=== PATIENT | male | born 1960 | race Caucasian/White ===

== ENCOUNTER 2021-05-27 09:38 | Day surgery (SDC) | payer BC ==
[~2021-05-27 09:38] MED LIST: Brimonidine 0.2% Ophth Soln 5 ML Bottle EYELF SCH
[2021-05-27] MEDS: Polymyxin B/Trimethoprim 10 ML Bottle EYELF SCH ×4 (09:44→11:13)
[2021-05-27 09:47] VITALS: PULSE 72
[2021-05-27] MEDS: Brimonidine 0.2% Ophth Soln 5 ML Bottle EYELF SCH ×4 (09:51→11:13)
[2021-05-27] MEDS: Phenylephrine 2.5% Ophth Soln 2 ML Bot EYELF SCH ×6 (09:54→10:46)
[2021-05-27] MEDS: Tropicamide 1% Ophth Soln 15 ML Bottle EYELF SCH ×4 (09:58→10:31)
[2021-05-27] MEDS: Lidocaine 1% PF 2 ML SDV INJECT SCH ×2 (10:39→10:55)
[2021-05-27] MEDS: Tetracaine HCl/PF 0.5% 4 ML Bottle EYEBOTH SCH ×3 (10:39→10:54)
[2021-05-27] MEDS: Pilocarpine 4% Ophth Soln 15 ML Bot EYELF SCH ×2 (10:40→11:13)
[2021-05-27] MEDS: Cefuroxime 10 MG/ML SYRINGE EYELF SCH ×2 (10:40→11:12)
[2021-05-27 11:24] VITALS: BP 143/96
== END 2021-05-27 11:23 | disposition home or self-care (01) ==
LOC: JD.SDS 09:38
PROVIDERS: ATTEND Ophthalmology
DX: E11.36 Type 2 diabetes mellitus with diabetic cataract (principal); H25.813 Combined forms of age-related cataract, bilateral; I10 Essential (primary) hypertension; M19.90 Unspecified osteoarthritis, unspecified site; K21.9 Gastro-esophageal reflux disease without esophagitis; E78.00 Pure hypercholesterolemia, unspecified; F17.200 Nicotine dependence, unspecified, uncomplicated; Z90.49 Acquired absence of other specified parts of digestive tract; Z79.82 Long term (current) use of aspirin; Z79.899 Other long term (current) drug therapy
CPT/HCPCS: 66984; C1780; J0697